=== PATIENT | female | born 1955 | race Caucasian/White ===

== ENCOUNTER 2022-02-14 06:59 | Observation (INO) ==
[2022-02-14] MEDS ORDERED: IOPAMIDOL 100 ML BOTTLE IV ONE (07:00)
[2022-02-14] MEDS ORDERED: morphine 4 MG/ML VIAL IV ONE (07:32)
[2022-02-14] MEDS ORDERED: KETOROLAC 30 MG/ML VIAL IV ONE (07:32)
[2022-02-14] MEDS ORDERED: ONDANSETRON 4 MG/2 ML VIAL IV ONE (07:32)
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
[2022-02-14 07:49] LABS: POC Calcium, Ionized 1.17 (1.16-1.32); POC Creatinine 0.9 (0.6-1.2); POC Potassium 4.9 (3.3-5.1)
--- NOTE | 2022-02-14 08:40 | Cat Scan Report ---
History: Recent fall with right rib pain and shortness of breath TECHNIQUE: The chest was imaged following injection of intravenous nonionic contrast scanning during the venous phase. Sagittal, coronal and axial MIPS images were created. The radiation exposure was limited using dose reduction technology. FINDINGS: There is a subtle buckle fracture laterally in the right eighth rib seen on image 95. An old healed fracture is present laterally in the right fourth rib. The remainder of the ribs are normal. The thoracic spine has disc space narrowing and spur formation at multiple levels but there is no fracture. The sternum is intact. There is no pneumothorax or pleural effusion. No mediastinal hemorrhage is present. There is a thick band of atelectasis in the right lung base with smaller bands of atelectasis in the superior segments of both lower lobes, right upper lobe and right middle lobe. There is no pulmonary contusion or laceration. The mediastinum and courtney are normal. The heart is normal in size and contour. The pulmonary arteries are normal without evidence of emboli. The aorta is normal in caliber and there is no dissection. There are few scattered calcified plaques. Mild to moderate fatty infiltration of liver is present. An exophytic 1.5 cm cyst is present in the upper pole of left kidney. IMPRESSION: Nondisplaced fracture anterolaterally in the right eighth rib. Multiple bands of atelectasis in both lungs with the greatest involvement in the posterior basal segment of the right lower lobe Dr. Gutierrez was called with the results Interpreted and Authenticated by: Bernardo Oleary 02/14/22
[2022-02-14 08:41] LABS: Basophils # (Auto) 0.04 K/mcL (0.00-0.30); Basophils % (Auto) 0.6 % (0.0-2.0); Eosinophils # (Auto) 0.21 K/mcL (0.00-0.70); Eosinophils % (Auto) 3.2 % (0.0-7.0); Hematocrit 38.6 % (34.1-44.9); Hemoglobin 12.2 g/dL (11.2-15.7); Lymphocytes % (Auto) 24.4 % (15.5-49.0); Mean Cell Volume 88.1 fL (80.0-100.0); Mean Corpuscular HGB Conc 31.6 g/dL (31.0-36.0); Mean Platelet Volume 9.6 fL (7.4-10.4); Monocytes # (Auto) 0.88 K/mcL (0.10-0.90); Monocytes % (Auto) 13.4 % (1.0-12.0); Neutrophils % (Auto) 58.4 % (38.0-78.0); Platelet Count 297 K/mcL (140-440); RBC 4.38 M/mcL (3.59-5.38); Red Cell Distribution Width 13.2 % (11.5-14.5); WBC 6.6 K/mcL (4.5-11.0)
--- NOTE | 2022-02-14 09:49 | EKG ---
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
[2022-02-14] MEDS ORDERED: ONDANSETRON 4 MG/2 ML VIAL IV PRN (11:48)
[2022-02-14] MEDS ORDERED: ONDANSETRON 4 MG ODT TABLET SL PRN (11:48)
[2022-02-14] MEDS ORDERED: NALOXONE HCL 0.4 MG/ML VIAL IV PRN (11:48)
[2022-02-14] MEDS ORDERED: PROCHLORPERAZINE 10 MG/2 ML VIAL IV PRN (11:48)
[2022-02-14] MEDS ORDERED: HYDROmorphone 0.5 MG/0.5 ML SYRINGE IV PRN (11:48)
[2022-02-14] MEDS: POLYETHYLENE GLYCOL 3350 17 GM PACKET PO SCH (12:18)
[2022-02-14] MEDS: ACETAMINOPHEN 500 MG TABLET PO SCH ×2 (12:18→21:33)
[2022-02-14] MEDS: 0.9 % SODIUM CHLORIDE 10 ML SYRINGE IV SCH ×2 (12:19→21:33)
[2022-02-14] MEDS: KETOROLAC 30 MG/ML VIAL IV SCH ×2 (12:19→17:12)
[2022-02-14 12:51] LABS: ALT/SGPT 24 U/L (<40); AST/SGOT 21 U/L (<32); Albumin 3.9 gm/dL (3.2-5.2); Albumin/Globulin Ratio 1.2 (1.0-2.3); Alkaline Phosphatase 98 U/L (39-117); Bilirubin,Total 0.3 mg/dL (0.1-1.0); Blood Urea Nitrogen 16 mg/dL (8-23); Calcium 8.8 mg/dL (8.6-10.4); Carbon Dioxide 23 mmol/L (22-30); Chloride 102 mmol/L (96-108); Globulin 3.2 gm/dL (2.2-3.7); Glomerular Filtration Rate 65; Glucose 128 mg/dL (70-105)
[2022-02-14] MEDS: oxyCODONE HCL 5 MG TABLET PO PRN ×2 (16:37→21:22)
[2022-02-14] MEDS ORDERED: FEXOFENADINE 180 MG TABLET PO PRN (19:56)
[2022-02-14] MEDS ORDERED: diphenhydrAMINE 25 MG CAPSULE PO PRN (19:57)
[2022-02-14] MEDS ORDERED: CETIRIZINE 10 MG TABLET PO SCH (21:00)
[2022-02-14] MEDS ORDERED: PRAMIPEXOLE 0.25 MG TABLET PO SCH (21:00)
[2022-02-14] MEDS ORDERED: FEXOFENADINE 180 MG TABLET PO SCH (21:00)
[2022-02-14] MEDS ORDERED: GABAPENTIN 300 MG CAPSULE PO SCH (21:00)
[2022-02-14] MEDS ORDERED: OMEPRAZOLE 20 MG CAPSULE PO SCH (21:00)
[2022-02-14] MEDS: buPROPion 100 MG TAB.SR.12H PO SCH (21:21)
[2022-02-14] MEDS: SENNOSIDES/DOCUSATE SODIUM 1 TAB TABLET PO SCH (21:22)
[2022-02-15] MEDS: KETOROLAC 30 MG/ML VIAL IV SCH ×3 (00:23→11:27)
[2022-02-15] MEDS: oxyCODONE HCL 5 MG TABLET PO PRN (01:47)
[2022-02-15] MEDS: ACETAMINOPHEN 500 MG TABLET PO SCH ×2 (05:01→11:28)
[2022-02-15] MEDS: 0.9 % SODIUM CHLORIDE 10 ML SYRINGE IV SCH (05:02)
[2022-02-15] MEDS: POLYETHYLENE GLYCOL 3350 17 GM PACKET PO SCH (08:14)
[2022-02-15] MEDS: SENNOSIDES/DOCUSATE SODIUM 1 TAB TABLET PO SCH (08:14)
[2022-02-15] MEDS: buPROPion 100 MG TAB.SR.12H PO SCH (08:14)
[2022-02-15] MEDS ORDERED: OXYBUTYNIN CHLORIDE 5 MG TABLET PO SCH (09:00)
[2022-02-15] MEDS ORDERED: OLMESARTAN MEDOXOMIL 20 MG TABLET PO SCH (09:00)
[2022-02-15] MEDS ORDERED: DULoxetine 30 MG CAPSULE PO SCH (09:00)
--- NOTE | 2022-02-15 09:30 | Discharge Summary ---
Discharge Provider Provider Patient information: Note initiated : 02/15/22 at 9:28 am Service Date, if different from initiated Date: [] Patient: Pati Rivas 66 y/o F admitted on 02/14/22 for pain. Chief Complaint: [] Date of admission: 02/14/22 11:30 Discharge date: 02/15/22 Primary care physician: Theresa Thompson Consults: 02/14/22 Consult to Physician [CONS] Stat Comment: Consulting Provider: Sinan Shukla Reason For Exam: Physician to Consult Discharge Meds Discharge Medications Home Medications cetirizine 10 mg capsule 10 mg PO DAILY 10/24/17 [History Confirmed 02/14/22 Last Taken 09/06/20 17:00] diphenhydramine HCl 25 mg capsule 50 mg PO HS 10/24/17 [History Confirmed 02/14/22 Last Taken 09/06/20 17:00] fexofenadine 180 mg tablet 180 mg PO HS 10/24/17 [History Confirmed 02/14/22 Last Taken 06/23/20] omeprazole 20 mg capsule,delayed release 40 mg PO HS 10/24/17 [History Confirmed 02/14/22 Last Taken 09/06/20 17:00] pramipexole 0.125 mg tablet 0.125 mg PO HS 10/24/17 [History Confirmed 02/14/22 Last Taken 09/06/20 17:00] telmisartan 40 mg tablet 80 mg PO DAILY 10/24/17 [History Confirmed 02/14/22 Last Taken 08/31/20] gabapentin 300 mg capsule 300 mg PO HS 02/15/19 [History Confirmed 02/14/22 Last Taken 09/06/20 05:00] ibuprofen 200 mg tablet 900 mg PO QHS tab 02/15/19 [History Confirmed 02/14/22 Last Taken 08/31/20] duloxetine 60 mg capsule,delayed release 60 mg PO QDAY 02/18/19 [History Confirmed 02/14/22 Last Taken 09/06/20 17:00] ondansetron 4 mg disintegrating tablet 4 mg PO Q8H PRN #20 tab 02/13/22 [Rx Confirmed 02/14/22 Last Taken Unknown] bupropion HCl 100 mg tablet,12 hr sustained-release 100 mg PO BID 02/14/22 [History Confirmed 02/14/22 Last Taken Unknown] lidocaine 5 % topical patch 1 patch TOPICAL Q12H PRN 02/14/22 [History Confirmed 02/14/22 Last Taken Unknown] oxybutynin chloride 5 mg tablet 5 mg PO QDAY 02/14/22 [History Confirmed 02/14/22 Last Taken Unknown] acetaminophen 500 mg tablet 1,000 mg PO Q8H 3 Days #18 tab 02/15/22 [Rx Last Taken Unknown] ibuprofen 800 mg tablet 800 mg PO Q8H PRN 3 Days #14 tab 02/15/22 [Rx Last Taken Unknown] oxycodone 5 mg capsule 5 mg PO Q6H PRN 3 Days #7 cap 02/15/22 [Rx Last Taken Unknown] polyethylene glycol 3350 17 gram/dose oral powder (Miralax) 17 g PO BID PRN #119 g 02/15/22 [Rx Last Taken Unknown] COURSE Hospital Course Hospital course: History of present illness: 66-year-old female with a history of hypertension, GERD, osteoarthritis, chronic pain, depression, obesity complicated by nonalcoholic fatty liver disease suffered a mechanical fall several days prior to admission that was complicated by a nondisplaced right anterior eighth rib fracture. The patient did not have satisfactory pain control with oral medi cations therefore presented to the ED and was subsequently admitted for pain control. 02/15 Patient feels better, discharged home with scheduled Tylenol, ibuprofen as needed, oxycodone as needed for 3 more days, option to extend to 7 days. Continue incentive spirometry after discharge. Follow-up with primary care provider. Physical exam Head: Atraumatic, normal inspection. Eyes: normal appearance, no scleral icterus. Neck: full ROM Respiratory: Reproducible right anterior chest pain. Cardiovascular: normal rate and rhythm, S1, S2. GI/Abdominal: soft, nontender, no guarding. Extremities: full range of motion, nontender. Neurological: CN II-XII intact, intact motor, intact sensation. Psychiatric: normal mood. Skin: warm, normal color Discharge diagnosis: Right anterior nondisplaced eighth rib fracture Time Spent with Patient Time attestation: Total time spent providing and/or coordinating discharge services: EXAM Constitutional Vitals: Temp Pulse Resp BP Pulse Ox 98.1 F 70 20 157/72 96 02/15/22 08:00 02/15/22 08:00 02/15/22 08:00 02/15/22 08:00 02/15/22 08:00 Discharge Data Data Completed and Pending Labs on day of discharge: Labs from last 24 hours 02/14/22 07:45 Sodium 136 Potassium 5.1 Chloride 102 Carbon Dioxide 23 Anion Gap 11.0 BUN 16 Creatinine 0.9 GFR Calculation 65 Glucose 128 H Calcium 8.8 Total Bilirubin 0.3 AST 21 ALT 24 Alkaline Phosphatase 98 Total Protein 7.1 Albumin 3.9 Globulin 3.2 Albumin/Globulin Ratio 1.2 Discharge Plan Patient/Caregiver Discharge Instructions Activity: increase activity as tolerated Diet: Regular Diet Activity Restrictions/Additional Instructions: Take Tylenol 1000 mg every 8 hours, ibuprofen 800 mg as needed every 8 hours, oxycodone 5 mg as needed for 3 more days. If you still have significant rib pain after 3 days you may extend this treatment to 5-7 more days. Take MiraLAX as needed for constipation that may be caused by oxycodone. Prescriptions: New acetaminophen 500 mg Tablet 1,000 mg PO Q8H 3 Days Qty: 18 0RF ibuprofen 800 mg tablet 800 mg PO Q8H PRN (Reason: pain) 3 Days Qty: 14 0RF oxycodone 5 mg capsule 5 mg PO Q6H PRN (Reason: pain) 3 Days Qty: 7 0RF polyethylene glycol 3350 [Miralax] 17 gram/dose powder 17 g PO BID PRN (Reason: constipation) Qty: 119 0RF Continued gabapentin 300 mg capsule 300 mg PO HS 0RF duloxetine 60 mg capsule,delayed release(DR/EC) 60 mg PO QDAY 0RF fexofenadine 180 MG tablet 180 mg PO HS 0RF diphenhydramine HCl 25 MG capsule 50 mg PO HS 0RF telmisartan 40 MG tablet 80 mg PO DAILY 0RF pramipexole 0.125 MG tablet 0.125 mg PO HS 0RF omeprazole 20 MG capsule 40 mg PO HS 0RF cetirizine 10 MG capsule 10 mg PO DAILY 0RF ondansetron 4 mg tablet,disintegrating 4 mg PO Q8H PRN (Reason: nausea and vomiting) Qty: 20 0RF lidocaine 5 % adhesive patch,medicated 1 patch topical Q12H PRN (Reason: pain) 0RF Rx Instructions: Apply to most painful area for up to 12 hrs/day. bupropion HCl 100 mg tablet sustained-release 12 hr 100 mg PO BID 0RF Label Comments: [NO ORIGINAL SIG] oxybutynin chloride 5 mg tablet 5 mg PO QDAY 0RF Label Comments: [NO ORIGINAL SIG] Discontinued acetaminophen-codeine 300-15 mg tablet See Rx Instructions .ROUTE .COMPLEX PRN (Reason: pain) Qty: 15 0RF Rx Instructions: 1-2 tabs PO q 6 hours PRN pain. Caution: may cause sedation. hydrocodone-acetaminophen 5-325 mg tablet 1 tab PO Q6H PRN (Reason: pain) Qty: 10 0RF No Action ibuprofen 200 mg tablet 900 mg PO QHS 0RF Rx Instructions: OFF SINCE 09/01/20 FOR SURGERY Follow Up Plan Follow up with: Theresa Thompson MD [Primary Care Provider] - Patient Disposition: Home, Self-Care Prognosis: Fair Overall status at discharge: patient is progressing back to baseline Discharge Orders: Discharge Order (Routine); Ordered 02/15/22 Ordered By: Sinan Shukla
== END 2022-02-15 13:10 | disposition home or self-care (01) ==
LOC: ED 06:59 → MEDSUR 06:59
PROVIDERS: ADMIT Internal Medicine; ATTEND Internal Medicine